=== PATIENT | male | born 1995 | race Caucasian/White ===

== ENCOUNTER 2016-06-04 14:39 | Emergency (ER) | payer BC ==
[2016-06-04] MEDS ORDERED: NS 0.9% 1000 ML* 1,000 ML IV SCH (15:00)
[2016-06-04 15:31] LABS: Hematocrit 45 % (42-52); Hemoglobin 14.3 g/dl (14.0-18.0); Mean Corpuscular HGB Conc 32 g/dl (31-36); Mean Corpuscular Hemoglobin 28 pg (27-31); Mean Corpuscular Volume 88 fL (80-94); Mean Platelet Volume 9 um3 (7.4-10.4); Red Cell Distribution Width 14 % (10.5-15); White Blood Count 15.8 10^3/ul (3.5-10.8)
[2016-06-04 15:36] LABS: Urine Bacteria Absent (Absent); Urine Bilirubin Negative (Negative); Urine Glucose Negative (Negative); Urine Nitrite Negative (Negative)
[2016-06-04 15:53] LABS: Acetaminophen < 15 mcg/mL; Alcohol < 10 mg/dL (<10)
[2016-06-04 15:55] LABS: ALT 14 U/L (7-52); AST 20 U/L (13-39); Albumin 4.5 g/dL (3.2-5.2); Alkaline Phosphatase 85 U/L (34-104); Anion Gap 9 mmol/L (2-11); BUN/Creatinine Ratio 14.7 (8-20); Blood Urea Nitrogen 15 mg/dL (6-24); C Reactive Protein 14.66 mg/L (< 5.00); CO2 Carbon Dioxide 24 mmol/L (22-32); Calcium 9.7 mg/dL (8.6-10.3); Chloride 101 mmol/L (101-111); Creatine Kinase 261 U/L (10-223); EGFR African American 117.5 (>60); EGFR Non-African American 91.3 (>60); Globulin 2.9 g/dL (2-4); Glucose 98 mg/dL (70-100); Lipase < 10 U/L (11.0-82.0); Magnesium 2.6 mg/dL (1.9-2.7); Potassium 4.7 mmol/L (3.5-5.0); Sodium 134 mmol/L (133-145); Total Protein 7.4 g/dL (6.4-8.9); Troponin I 0.01 ng/mL (<0.04)
[2016-06-04] MEDS ORDERED: levETIRAcetam IV* 500 MG/5 ML VIAL ONE (16:00)
[2016-06-04] MEDS ORDERED: levETIRAcetam IV* 1,000 MG in NS 0.9% 100 ML* 100 ML IVPB SCH (16:00)
[2016-06-04 16:03] LABS: TSH (Thyroid Stimulating Horm) 1.49 mcIU/mL (0.34-5.60)
--- NOTE | 2016-06-04 16:08 | RAD ---
INDICATION: Seizure COMPARISON: None TECHNIQUE: Noncontrast axial source images were acquired from the skull base to the vertex. FINDINGS: Ventricles/sulci: The ventricles and cisterns are normal in size and configuration for age. Brain parenchyma: There is no focal parenchymal finding, evidence of intracranial mass, or intracranial mass effect. Intracranial hemorrhage:None. Extra-axial spaces: There are no abnormal extra axial fluid collections or evidence of extra-axial mass. Calvarium: There is no calvarial fracture or other calvarial abnormality. Scalp: There is no evidence of scalp or extracalvarial soft tissue abnormality. Paranasal sinuses/mastoid: There is circumferential mucosal process thickening right maxillary antrum and there is right-sided ethmoid disease. Other: None. IMPRESSION: No acute intracranial findings. Sinusitis.
[2016-06-04] MEDS ORDERED: Amoxicillin/Clavulanate TAB* 875 MG PO ONE ×2 (18:46→18:47)
--- NOTE | 2016-06-04 18:52 | ED ---
Brijesh Bray Michael, scribed for John Rosado MD on 06/04/16 at 1510 . Altered Mental Status - HPI Summary HPI Summary: 21 y/o male was BIBA to the ED presenting with 3 episodes of sz this morning per nurse's note. The pt was drinking alcohol last night and into this morning. He was aroused to voice, but then fell back asleep. The PMHx is significant for sz and takes Keppra twice a day. He states not remembering if he took Keppra this morning. HPI limited due to level 5 caveat. - History Of Current Complaint Chief Complaint: EDAltMentalStatus Stated Complaint: UNRESPONSIVE Time Seen by Provider: 06/04/16 14:51 Hx Obtained From: Patient, EMS, Medical Records Hx From Patient Unobtainable Due To: Altered Mental Status Onset/Duration: Suddenly Timing: Intermittent Severity Initially: Moderate Severity Currently: Moderate Aggravating Factor(s): Unknown Alleviating Factor(s): Unknown Associated Signs And Symptoms: Positive: Seizure - Allergies/Home Medications Allergies/Adverse Reactions: Allergies Allergy/AdvReac Type Severity Reaction Status Date / Time No Known Allergies Allergy Verified 06/04/16 16:18 PMH/Surg Hx/FS Hx/Imm Hx Neurological History: Reports: Hx Seizures Infectious Disease History: No Infectious Disease History: Denies: Traveled Outside the [place] in Last 30 Days - Family History Known Family History: Positive: Unknown Family History: limited due to level 5 caveat - Social History Occupation: Student Alcohol Use: Occasionally Review of Systems Neurological: Other - sz All Other Systems Reviewed And Are Negative: No Physical Exam Triage Information Reviewed: Yes Vital Signs On Initial Exam: Initial Vitals BP 119/64 06/04/16 14:42 Vital Signs Reviewed: Yes Appearance: Positive: Well-Appearing, No Pain Distress Skin: Positive: Warm, Skin Color Reflects Adequate Perfusion, Dry Head/Face: Positive: Normal Head/Face Inspection Eyes: Positive: Other: - pupils 4 mm AVPU Assessment: Verbal (Reponds To) - aroused to voice - Sabina Coma Scale Coma Scale Total: 12 Diagnostics - Vital Signs Vital Signs Temp Pulse Resp BP Pulse Ox 06/04/16 14:52 98.2 F 97 14 114/66 95 06/04/16 14:46 98.2 F 94 13 114/66 95 02/26/17 14:43 68 14 95 06/04/16 14:42 119/64 - Laboratory Lab Results: Lab Results 06/04/16 06/04/16 06/04/16 Range/Units 15:06 15:06 15:06 WBC 15.8 H (3.5-10.8) 10^3/ul RBC 5.10 (4.0-5.4) 10^6/ul Hgb 14.3 (14.0-18.0) g/dl Hct 45 (42-52) % MCV 88 (80-94) fL MCH 28 (27-31) pg MCHC 32 (31-36) g/dl RDW 14 (10.5-15) % Plt Count 235 (150-450) 10^3/ul MPV 9 (7.4-10.4) um3 Neut % (Auto) 91.5 H (38-83) % Lymph % (Auto) 4.9 L (25-47) % [place] % (Auto) 2.9 (1-9) % Eos % (Auto) 0.2 (0-6) % Baso % (Auto) 0.5 (0-2) % Absolute Neuts (auto) 14.4 H (1.5-7.7) 10^3/ul Absolute Lymphs (auto) 0.8 L (1.0-4.8) 10^3/ul Absolute Monos (auto) 0.5 (0-0.8) 10^3/ul Absolute Eos (auto) 0 (0-0.6) 10^3/ul Absolute Basos (auto) 0.1 (0-0.2) 10^3/ul Absolute Nucleated RBC 0 10^3/ul Nucleated RBC % 0 INR (Anticoag Therapy) 0.87 L (0.89-1.11) APTT 29.9 (26.0-36.3) seconds Sodium (133-145) mmol/L Potassium (3.5-5.0) mmol/L Chloride (101-111) mmol/L Carbon Dioxide (22-32) mmol/L Anion Gap (2-11) mmol/L BUN (6-24) mg/dL Creatinine (0.67-1.17) mg/dL Est GFR ( Amer) (>60) Est GFR (Non-Af Amer) (>60) BUN/Creatinine Ratio (8-20) Glucose (70-100) mg/dL Lactic Acid (0.5-2.0) mmol/L Calcium (8.6-10.3) mg/dL Magnesium (1.9-2.7) mg/dL Total Bilirubin (0.2-1.0) mg/dL AST (13-39) U/L ALT (7-52) U/L Alkaline Phosphatase (34-104) U/L Total Creatine Kinase (10-223) U/L CK-MB (CK-2) (0.6-6.3) ng/mL Troponin I (<0.04) ng/mL C-Reactive Protein (< 5.00) mg/L Total Protein (6.4-8.9) g/dL Albumin (3.2-5.2) g/dL Globulin (2-4) g/dL Albumin/Globulin Ratio (1-3) Lipase (11.0-82.0) U/L TSH (0.34-5.60) mcIU/mL Urine Color Yellow Urine Appearance Cloudy Urine pH 5.0 (5-9) Ur Specific [place] 1.019 (1.010-1.030) Urine Protein 2+(100 mg/dl) H (Negative) Urine Ketones Negative (Negative) Urine Blood 2+ H (Negative) Urine Nitrate Negative (Negative) Urine Bilirubin Negative (Negative) Urine Urobilinogen Negative (Negative) Ur Leukocyte Esterase Negative (Negative) Urine WBC (Auto) Absent (Absent) Urine RBC (Auto) Trace(0-2/hpf) (Absent) Urine Bacteria Absent (Absent) Hyaline Casts Present H (Absent) Urine Glucose Negative (Negative) Acetaminophen mcg/mL Serum Alcohol (<10) mg/dL 06/04/16 06/04/16 Range/Units 15:06 15:06 WBC (3.5-10.8) 10^3/ul RBC (4.0-5.4) 10^6/ul Hgb (14.0-18.0) g/dl Hct (42-52) % MCV (80-94) fL MCH (27-31) pg MCHC (31-36) g/dl RDW (10.5-15) % Plt Count (150-450) 10^3/ul MPV (7.4-10.4) um3 Neut % (Auto) (38-83) % Lymph % (Auto) (25-47) % [place] % (Auto) (1-9) % Eos % (Auto) (0-6) % Baso % (Auto) (0-2) % Absolute Neuts (auto) (1.5-7.7) 10^3/ul Absolute Lymphs (auto) (1.0-4.8) 10^3/ul Absolute Monos (auto) (0-0.8) 10^3/ul Absolute Eos (auto) (0-0.6) 10^3/ul Absolute Basos (auto) (0-0.2) 10^3/ul Absolute Nucleated RBC 10^3/ul Nucleated RBC % INR (Anticoag Therapy) (0.89-1.11) APTT (26.0-36.3) seconds Sodium 134 (133-145) mmol/L Potassium 4.7 (3.5-5.0) mmol/L Chloride 101 (101-111) mmol/L Carbon Dioxide 24 (22-32) mmol/L Anion Gap 9 (2-11) mmol/L BUN 15 (6-24) mg/dL Creatinine 1.02 (0.67-1.17) mg/dL Est GFR ( Amer) 117.5 (>60) Est GFR (Non-Af Amer) 91.3 (>60) BUN/Creatinine Ratio 14.7 (8-20) Glucose 98 (70-100) mg/dL Lactic Acid 2.6 H* (0.5-2.0) mmol/L Calcium 9.7 (8.6-10.3) mg/dL Magnesium 2.6 (1.9-2.7) mg/dL Total Bilirubin 0.50 (0.2-1.0) mg/dL AST 20 (13-39) U/L ALT 14 (7-52) U/L Alkaline Phosphatase 85 (34-104) U/L Total Creatine Kinase 261 H (10-223) U/L CK-MB (CK-2) 3.2 (0.6-6.3) ng/mL Troponin I 0.01 (<0.04) ng/mL C-Reactive Protein 14.66 H (< 5.00) mg/L Total Protein 7.4 (6.4-8.9) g/dL Albumin 4.5 (3.2-5.2) g/dL Globulin 2.9 (2-4) g/dL Albumin/Globulin Ratio 1.6 (1-3) Lipase < 10 L (11.0-82.0) U/L TSH 1.49 (0.34-5.60) mcIU/mL Urine Color Urine Appearance Urine pH (5-9) Ur Specific [place] (1.010-1.030) Urine Protein (Negative) Urine Ketones (Negative) Urine Blood (Negative) Urine Nitrate (Negative) Urine Bilirubin (Negative) Urine Urobilinogen (Negative) Ur Leukocyte Esterase (Negative) Urine WBC (Auto) (Absent) Urine RBC (Auto) (Absent) Urine Bacteria (Absent) Hyaline Casts (Absent) Urine Glucose (Negative) Acetaminophen < 15 mcg/mL Serum Alcohol < 10 (<10) mg/dL Result Diagrams: 06/04/16 15:06 06/04/16 15:06 Lab Statement: Any lab studies that have been ordered have been reviewed, and results considered in the medical decision making process. - CT Brain CT CT Interpretation: Positive (See Comments) - no acute intracranial findings. sinusitis. CT Interpretation Completed By: Radiologist Altered Mental Statu Course/Dx - Course Course Of Treatment: Consulted Dr. Jin (Neurology)at 1500- pt reported that he takes Keppra BID and had not taken any today. Dr. Jin states giving the pt 1000 mg of Keppra is sufficient. Dr. Jin consulted pt- patient had his first sz in November and sees a neurologist at home in [facility]. Suggests follow up with nuerologist. IMPROVED IN ED. PATIENT BACK TO BASELINE. MISSED KEPPRA DOSES LAST PM AND THIS AM. NEUROLOGY SAW PATIENT IN ED. PATIENT HAS KEPPRA AT HOME. ENCOURAGED TO TAKE KEPPRA DIRECTED. DISCHARGE HOME STABLE. - Diagnoses Discharge Diagnoses: Epilepsy, Seizure Discharge - Discharge Plan Condition: Stable Disposition: HOME Prescriptions: Amoxicillin/Clavulanate TAB* [Augmentin TAB 875*] 875 mg PO BID #18 tab Patient Education Materials: Sinusitis (ED), Epilepsy (ED) Referrals: [facility] @ [Outside] Additional Instructions: TAKE YOUR KEPPRA DIRECTED. FOLLOW UP WITH YOUR NEUROLOGIST AND PRIMARY CARE DOCTOR/[facility]. RETURN TO THE EMERGENCY DEPARTMENT FOR ANY WORSENING OF YOUR CONDITION OR QUESTIONS OR CONCERNS. The documentation as recorded by the Brijesh blankenship Michael accurately reflects the service I personally performed and the decisions made by me, John Rosado MD.
[2016-06-04 19:36] VITALS: BP 107/90
--- NOTE | 2016-06-04 20:56 | CONS ---
NEUROLOGY CONSULT REPORT: DATE OF CONSULT: 06/04/16 - EMERGENCY DEPT REASON FOR CONSULT: Seizure. REQUESTING PHYSICIAN: Dr. Rosado. HISTORY OF PRESENT ILLNESS: The patient is a 21-year-old right handed male, college student, who probably had quite a bit of alcohol drinking last night. This morning his girlfriend called one of the patient's friends telling them that he is seizing. By the time his friends arrived at his home, he was almost fine but he had 2 more seizures within probably an hour. The description of the seizures are generalized tonic-clonic with tongue biting with no clear localizing or lateralizing signs. The first seizure happned while he was asleep and the other 2 seizure he does not recall any auras or warning signs. He does have a history of prior seizure, the first one back in November 2015 during sleep. He has seen a neurologist and per the patient had completed an MRI and a 24-hour EEG which was unremarkable per the patient. He did not have any followup with his neurologist since then. He is on Keppra 1000 mg p.o. b.i.d., but he did not take his night dose due to probably intoxication with alcohol. He did not have any risk factors for seizures: there is no history of head trauma in the past, no history of meningitis or febrile seizures in the past and no family history of seizures either. By the time I examined the patient, he was back to his baseline. He had not had any seizures since November 2015. PAST MEDICAL HISTORY: None. PAST SURGICAL HISTORY: None. FAMILY HISTORY: Noncontributory. As mentioned, there is no family history of seizures in the family. SOCIAL HISTORY: The patient smokes marijuana probably 2 or 3 times a week. His last smoke was yesterday and there was nothing unusual about the marijuana he smoked then (it was not "dipped"). Denies other drug use. He drinks alcohol occasionally during the weekends. REVIEW OF SYSTEMS: Complete review of systems was performed and other than some soreness in the back of the head in the left occipital area related to a a fall during one of his seizures is unremarkable. Neurological Exam: He is awake, alert and oriented x3. Extraocular movements are intact. Pupils are symmetric and reactive to light. There is no neck rigidity. Face is symmetric. Tongue is in midline and there are small lacerations on the sides of his tongue due to seizure. Strength is 5/5 throughout. Sensation is intact to light touch and pinprick. Finger to nose is intact bilaterally. Heart has regular rate and rhythm. Lungs are clear to auscultation. DIAGNOSTIC STUDIES/LAB DATA: WBC 15.8, hemoglobin 14.3, hematocrit 45. Sodium is 134, potassium is 4.7, creatinine is 1.02, BUN 15, lactic acid 2.6, AST 20, ALT 14, alkaline phosphatase 85. TSH 1.49. Urine is negative. Toxicology, alcohol, serum alcohol is less than 10. Imaging: He had a CT of the head which was unremarkable. ASSESSMENT AND PLAN: The patient is a 21-year-old male with a history of one seizure in the past and is on Keppra. He presented with multiple breakthrough seizures today. I think the breakthrough seizures today were in the setting of forgetting to take his last night's dose, plus the alcohol. Currently, the patient is at his baseline. There is no signs of meningitis. The elevated WBC and lactic acid probably are the result of the seizure. He is back to his baseline now. The patient was counseled about triggering factors of seizures including alcohol intake, sleep deprivation and strobe lights. He should not drive until he sees his neurologist for followup. Continue the current medications. He received 1 g of Keppra while he was in the ED. [id number]/[facility] #: [id number] [facility] HOSPITALKatt
== END 2016-06-04 19:31 | disposition home or self-care (01) ==
LOC: ED 14:39
DX: G40.909 Epilepsy, unspecified, not intractable, without status epilepticus (principal)
CPT/HCPCS: 36415; 70450; 80053; 80320; 80329; 81003; 81015; 82550; 82553; 83605; 83690; 83735; 84443; 84484; 85025; 85610; 85730; 86140; 96374; 99284; A9270-GY; G0480

== ENCOUNTER 2016-08-10 12:50 | Emergency (ER) | payer BC ==
[2016-08-10] MEDS ORDERED: NS 0.9% 1000 ML* 1,000 ML IV ONE (14:41)
[2016-08-10 15:10] LABS: Hematocrit 44 % (42-52); Hemoglobin 13.8 g/dl (14.0-18.0); Mean Corpuscular HGB Conc 32 g/dl (31-36); Mean Corpuscular Hemoglobin 28 pg (27-31); Mean Corpuscular Volume 87 fL (80-94); Mean Platelet Volume 8 um3 (7.4-10.4); Red Cell Distribution Width 15 % (10.5-15)
[2016-08-10 15:29] LABS: Albumin 4.6 g/dL (3.2-5.2); C Reactive Protein 7.61 mg/L (< 5.00); Calcium 9.4 mg/dL (8.6-10.3); EGFR African American 129.1 (>60); EGFR Non-African American 100.4 (>60); Globulin 2.7 g/dL (2-4); Magnesium 2.3 mg/dL (1.9-2.7); Total Bilirubin 0.6 mg/dL (0.2-1.0); Total Protein 7.3 g/dL (6.4-8.9)
[2016-08-10] MEDS ORDERED: levETIRAcetam TAB* 500 MG PO ONE (15:47)
--- NOTE | 2016-08-10 16:54 | ED ---
Shamika Bray Anna, scribed for John Rosado MD on 08/10/16 at 1435 . Syncope/Near Syncope - HPI Summary HPI Summary: Patient is a 21 y/o male coming to [facility] following three witnessed, tonic- clonic seizures that occurred today, two of them at 0500 and one at 1200. The first one he had this morning was 60 seconds, the longest of the three seizures today. The other two were about 45 seconds each. He began having seizures for the first time in 11/2015 and has had six seizures total. Before today, his most recent seizure was 07/23/2016. He takes Keppra and is supposed to take it night and morning. He did take it this morning and last night. He missed a dose yesterday morning. His seizures typically only happen at night. He does not feel he was particularly stressed or sleep deprived prior to the onset of the seizures. Now, he feels exhausted with a sore upper body and a sore jaw. He does not think he broke anything. Denies nausea. Experienced emesis once at 1100 and once in the ED parking lot. Patient medications have been reviewed this visit. - History Of Current Complaint Chief Complaint: EDSeizure Time Seen by Provider: 08/10/16 14:06 Hx Obtained From: Patient, Family/[employer] - accompanied by friend Onset/Duration: Sudden Onset, Lasting Minutes, Resolved Timing: Intermittent Episode Lasting - 45-60 seconds Context: Witnessed Associated Head Trauma: No Alleviating Factor(s): Spontaneous Resolution - Allergies/Home Medications Allergies/Adverse Reactions: Allergies Allergy/AdvReac Type Severity Reaction Status Date / Time No Known Allergies Allergy Verified 06/04/16 16:18 Home Medications: Home Medications levETIRAcetam TAB* [Keppra TAB*] 1,000 mg PO BID 08/10/16 [History Confirmed 07/24] PMH/Surg Hx/FS Hx/Imm Hx Cardiovascular History: Denies: Hx Myocardial Infarction Respiratory History: Denies: Hx Chronic Obstructive Pulmonary Disease (COPD) Neurological History: Reports: Hx Seizures Infectious Disease History: No Infectious Disease History: Reports: Traveled Outside the [place] in Last 30 Days - Family History Known Family History: Negative: Cardiac Disease, Hypertension, Seizure Disorder - Social History Occupation: Student Lives: With Family Alcohol Use: Occasionally Substance Use Type: Reports: None Smoking Status (MU): Never Smoked Tobacco Review of Systems Positive: Vomiting. Negative: Nausea Positive: Arthralgia, Myalgia Positive: Syncope - SEIZURE All Other Systems Reviewed And Are Negative: Yes Physical Exam Triage Information Reviewed: Yes Vital Signs On Initial Exam: Initial Vitals Temp Pulse Resp BP Pulse Ox 98.1 F 70 18 120/67 100 08/10/16 12:53 08/10/16 12:53 08/10/16 12:53 08/10/16 12:53 08/10/16 12:53 Vital Signs Reviewed: Yes Appearance: Positive: Well-Appearing, No Pain Distress Skin: Positive: Warm, Skin Color Reflects Adequate Perfusion, Dry Head/Face: Positive: Normal Head/Face Inspection Eyes: Positive: EOMI, NATALEE ENT: Positive: Normal ENT inspection Neck: Positive: Supple, Nontender Respiratory/Lung Sounds: Positive: Clear to Auscultation, Breath Sounds Present Cardiovascular: Positive: RRR Abdomen Description: Positive: Nontender, Soft Bowel Sounds: Positive: Present Musculoskeletal: Positive: Normal, Strength/ROM Intact Neurological: Positive: Normal, Sensory/Motor Intact, Alert, Oriented to Person Place, Time Psychiatric: Positive: Affect/Mood Appropriate - [place] Coma Scale Coma Scale Total: 15 Diagnostics - Vital Signs Vital Signs Temp Pulse Resp BP Pulse Ox 08/10/16 14:07 98 F 78 18 126/68 100 08/10/16 12:53 98.1 F 70 18 120/67 100 - Laboratory Lab Results: Lab Results 08/10/16 08/10/16 08/10/16 Range/Units 14:50 14:50 14:50 WBC 19.0 H (3.5-10.8) 10^3/ul RBC 5.00 (4.0-5.4) 10^6/ul Hgb 13.8 L (14.0-18.0) g/dl Hct 44 (42-52) % MCV 87 (80-94) fL MCH 28 (27-31) pg MCHC 32 (31-36) g/dl RDW 15 (10.5-15) % Plt Count 252 (150-450) 10^3/ul MPV 8 (7.4-10.4) um3 Neut % (Auto) 91.1 H (38-83) % Lymph % (Auto) 4.1 L (25-47) % [place] % (Auto) 4.2 (1-9) % Eos % (Auto) 0 (0-6) % Baso % (Auto) 0.6 (0-2) % Absolute Neuts (auto) 17.3 H (1.5-7.7) 10^3/ul Absolute Lymphs (auto) 0.8 L (1.0-4.8) 10^3/ul Absolute Monos (auto) 0.8 (0-0.8) 10^3/ul Absolute Eos (auto) 0 (0-0.6) 10^3/ul Absolute Basos (auto) 0.1 (0-0.2) 10^3/ul Absolute Nucleated RBC 0 10^3/ul Nucleated RBC % 0 Sodium 135 (133-145) mmol/L Potassium 4.0 (3.5-5.0) mmol/L Chloride 103 (101-111) mmol/L Carbon Dioxide 26 (22-32) mmol/L Anion Gap 6 (2-11) mmol/L BUN 15 (6-24) mg/dL Creatinine 0.94 (0.67-1.17) mg/dL Est GFR ( Amer) 129.1 (>60) Est GFR (Non-Af Amer) 100.4 (>60) BUN/Creatinine Ratio 16.0 (8-20) Glucose 104 H (70-100) mg/dL Lactic Acid 1.0 (0.5-2.0) mmol/L Calcium 9.4 (8.6-10.3) mg/dL Magnesium 2.3 (1.9-2.7) mg/dL Total Bilirubin 0.60 (0.2-1.0) mg/dL AST 21 (13-39) U/L ALT 17 (7-52) U/L Alkaline Phosphatase 69 (34-104) U/L Total Creatine Kinase 185 (10-223) U/L C-Reactive Protein 7.61 H (< 5.00) mg/L Total Protein 7.3 (6.4-8.9) g/dL Albumin 4.6 (3.2-5.2) g/dL Globulin 2.7 (2-4) g/dL Albumin/Globulin Ratio 1.7 (1-3) Result Diagrams: 08/10/16 14:50 08/10/16 14:50 Lab Statement: Any lab studies that have been ordered have been reviewed, and results considered in the medical decision making process. Re-Evaluation - Re-Evaluation First Eval Re-Evaluation Time: 16:47 Comment: Discussed results and plan of care with patient. Patient is agreeable with plan. Course/Dx Course Of Treatment: NO CRITICAL CARE TIME Assessment/Plan: WELL IN ED. DISCUSSED WITH DR OSEGUERA. SHE RECOMMENDED GIVING KEPPRA 750MG PO IN ED AND CONTINUE WITH 750MG PO BID. DISCUSSED RESULTS WITH PATIENT. DISCHARGE HOME STABLE. - Diagnoses Provider Diagnoses: Epilepsy - Physician Notifications Discussed Care Of Patient With: Dr. Oseguera (neurologist) at 1544. The patient is prescribed 750 mg Keppra PO BID. He can have an extra dose of Keppra today and continue to take his prescribed doseage. Discharge - Discharge Plan Condition: Stable Disposition: HOME Patient Education Materials: Epilepsy (ED) Referrals: Jai Oseguera [Other] ([phone]) [facility] [Primary Care Provider] - Additional Instructions: FOLLOW UP WITH YOUR NEUROLOGIST. TAKE YOUR KEPPRA 750MG TWICE A DAY DIRECTED. RETURN TO THE EMERGENCY DEPARTMENT FOR ANY WORSENING OF YOUR CONDITION; FEVER, YOU FEEL ILL, FURTHER SEIZURES OR QUESTIONS OR CONCERNS. The documentation as recorded by the Shamika blankenship Anna accurately reflects the service I personally performed and the decisions made by me, John Rosado MD.
[2016-08-10 17:07] VITALS: BP 123/73
== END 2016-08-10 17:06 | disposition home or self-care (01) ==
LOC: ED 12:50
DX: G40.909 Epilepsy, unspecified, not intractable, without status epilepticus (principal); R11.10 Vomiting, unspecified
CPT/HCPCS: 36415; 80053; 80177; 82550; 83605; 83735; 85025; 86140; 99283; A9270-GY